=== PATIENT | female | born 1985 | race African-American/Black ===

== ENCOUNTER 2023-11-24 11:13 | Inpatient (IN) | payer OTHER ==
[2023-11-24] MEDS ORDERED: SODIUM CHLORIDE 0.9% 1000 ML INFUS.BAG IV ONE (11:57)
[2023-11-24 12:16] LABS: BASO % 0.3 % (0-2.0); EOS % 0.2 % (0-4.5); HEMATOCRIT 41.6 % (32.4-45.2); HEMOGLOBIN 13.7 GM/dL (10.7-15.3); MCH 29.5 pg (25.7-33.7); MCHC 32.9 g/dl (32.0-36.0); MEAN CELL VOLUME 89.7 fl (80-96); MEAN PLT VOLUME 7.9 fl (7.5-11.1); MONO % 4.1 % (3.8-10.2); NEUT % 90.4 % (42.8-82.8); PLATELET COUNT 355 10^3/uL (134-434); RBC 4.64 M/mm3 (3.60-5.2); RDW 13.1 % (11.6-15.6)
[2023-11-24 12:35] LABS: POTASSIUM 4.5 mmol/L (3.5-5.1)
[2023-11-24 12:38] LABS: BLOOD UREA NITROGEN 9.9 mg/dL (7-18); CALCIUM 8.6 mg/dL (8.5-10.1)
[2023-11-24 12:39] LABS: ALBUMIN 3.7 g/dl (3.4-5.0)
[2023-11-24 12:42] LABS: CREATININE 0.7 mg/dL (0.55-1.3)
[2023-11-24] MEDS ORDERED: ACETAMINOPHEN 325 MG TABLET (FP) PO ONE (12:42)
[2023-11-24] MEDS ORDERED: METOCLOPRAMIDE HCL INJECTION 10 MG/2 ML VIAL IVPUSH ONE (12:42)
[2023-11-24] MEDS ORDERED: MECLIZINE HCL 25 MG TABLET (FP) PO ONE (12:42)
[2023-11-24 12:43] LABS: BILIRUBIN,TOTAL 0.3 mg/dL (0.2-1); TOT PROT 7.8 g/dl (6.4-8.2)
[2023-11-24] MEDS ORDERED: ACETAMINOPHEN 325 MG TABLET (FP) ONE (12:47)
[2023-11-24] MEDS ORDERED: MECLIZINE HCL 25 MG TABLET (FP) ONE (12:47)
[2023-11-24] MEDS ORDERED: METOCLOPRAMIDE HCL INJECTION 10 MG/2 ML VIAL ONE (12:48)
[2023-11-24 13:08] LABS: EPI CELLS 9 /uL (0-25.1); HYALINE CASTS 0 /uL (0-3.1); URINE APPEARANCE CLEAR; URINE BACTERIA 416 /uL (0-1359); URINE BILIRUBIN NEGATIVE (NEGATIVE); URINE COLOR YELLOW; URINE GLUCOSE (UA) NEGATIVE (NEGATIVE); URINE KETONE NEGATIVE (NEGATIVE); URINE LEUK ESTERASE NEGATIVE (NEGATIVE); URINE NITRITE NEGATIVE (NEGATIVE); URINE PROTEIN 1+ (NEGATIVE); URINE RBC 7 /uL (0-23.9); URINE UROBILINOGEN 0.2 mg/dL (0.2-1.0); URINE WBC 6 /uL (0-25.8)
[2023-11-24] MEDS ORDERED: NITROGLYCERIN SUBLINGUAL 1/150 0.4 MG TAB SL ONE (17:47)
[2023-11-24] MEDS ORDERED: NITROGLYCERIN 2% OINTMENT - 1GM PACKET TD ONE ×3 (17:48→20:31)
[2023-11-24] MEDS ORDERED: NITROGLYCERIN SUBLINGUAL 1/150 0.4 MG TAB ONE ×2 (18:24→20:30)
[2023-11-24] MEDS ORDERED: LABETALOL HCL 5 MG/1 ML (100MG/20 ML VIAL) IVPUSH ONE (19:17)
[2023-11-24] MEDS ORDERED: ASPIRIN 81 MG CHEWABLE TABLETS PO ONE (19:17)
[2023-11-24] MEDS ORDERED: LOSARTAN POTASSIUM 50 MG TABLET PO ONE (19:52)
[2023-11-24] MEDS ORDERED: hydrALAZINE HCL 20 MG/ML VIAL IVPUSH PRN ×3 (20:11→21:38)
[2023-11-24] MEDS ORDERED: LOSARTAN POTASSIUM 50 MG TABLET ONE (20:30)
[2023-11-24] MEDS ORDERED: LOSARTAN POTASSIUM 25 MG TABLET ONE (20:30)
[2023-11-24] MEDS ORDERED: ASPIRIN 81 MG CHEWABLE TABLETS ONE (20:31)
[2023-11-24] MEDS ORDERED: LABETALOL HCL 5 MG/1 ML (100MG/20 ML VIAL) ONE (20:31)
[2023-11-24] MEDS ORDERED: hydrALAZINE HCL 20 MG/ML VIAL ONE (23:00)
[2023-11-25 00:23] LABS: METHADONE, UR NEGATIVE (NEGATIVE); OPIATES, URI NEGATIVE (NEGATIVE); URINE BENZODIAZEPINES NEGATIVE (NEGATIVE)
[2023-11-25 00:24] LABS: PHENCYCLIDINE,URINE NEGATIVE (NEGATIVE)
[2023-11-25 00:27] LABS: COCAINE, UR NEGATIVE (NEGATIVE); URINE AMPHETAMINES NEGATIVE (NEGATIVE); URINE BARBITURATES NEGATIVE (NEGATIVE)
[2023-11-25] MEDS ORDERED: ACETAMINOPHEN 1000 MG/100 ML BAG IVPB ONE (04:50)
[2023-11-25] MEDS ORDERED: ONDANSETRON 4 MG/2 ML VIAL IVPUSH ONE (04:51)
[2023-11-25] MEDS ORDERED: hydrALAZINE HCL 20 MG/ML VIAL IVPUSH ONE ×3 (05:07→06:14)
[2023-11-25 08:28] LABS: HEMATOCRIT 39.5 % (32.4-45.2); HEMOGLOBIN 13.1 GM/dL (10.7-15.3); MCH 29.6 pg (25.7-33.7); MCHC 33.1 g/dl (32.0-36.0); MEAN CELL VOLUME 89.4 fl (80-96); MEAN PLT VOLUME 8.5 fl (7.5-11.1); PLATELET COUNT 341 10^3/uL (134-434); RBC 4.42 M/mm3 (3.60-5.2); RDW 13.2 % (11.6-15.6)
[2023-11-25 08:38] LABS: POTASSIUM 3.4 mmol/L (3.5-5.1)
[2023-11-25 08:40] LABS: ALBUMIN 3.5 g/dl (3.4-5.0); BLOOD UREA NITROGEN 9.5 mg/dL (7-18); CALCIUM 8.7 mg/dL (8.5-10.1)
[2023-11-25 08:43] LABS: CREATININE 0.6 mg/dL (0.55-1.3)
[2023-11-25 08:45] LABS: BILIRUBIN,TOTAL 0.5 mg/dL (0.2-1)
[2023-11-25] MEDS ORDERED: LOSARTAN POTASSIUM 50 MG TABLET ONE (10:03)
[2023-11-25] MEDS ORDERED: HYDROCHLOROTHIAZIDE 25 MG TABLET (FP) ONE (10:03)
[2023-11-25] MEDS ORDERED: ENOXAPARIN NA (PORCINE) 40 MG/0.4 ML DISP.SYRIN SQ ONE (10:03)
[2023-11-25] MEDS: ENOXAPARIN NA (PORCINE) 40 MG/0.4 ML DISP.SYRIN SQ SCH (10:04)
[2023-11-25] MEDS: HYDROCHLOROTHIAZIDE 25 MG TABLET (FP) PO SCH (10:04)
[2023-11-25] MEDS: LOSARTAN POTASSIUM 50 MG TABLET PO SCH (10:04)
[2023-11-25] MEDS ORDERED: POTASSIUM CHLORIDE TABS 20 MEQ TABLET.ER (FP) PO ONE ×2 (11:16→12:00)
[2023-11-25] MEDS ORDERED: amLODIPine BESYLATE 10 MG TABLET (FP) ONE (11:17)
[2023-11-25] MEDS ORDERED: ROSUVASTATIN CA 20 MG TABLET ONE (11:17)
[2023-11-25] MEDS: amLODIPine BESYLATE 10 MG TABLET (FP) PO SCH (11:28)
[2023-11-25] MEDS ORDERED: ROSUVASTATIN CA 40 MG TABLET PO ONE (12:00)
[2023-11-25] MEDS: hydrALAZINE HCL 20 MG/ML VIAL IVPUSH PRN ×2 (18:05→23:51)
[2023-11-25] MEDS ORDERED: hydrALAZINE HCL 20 MG/ML VIAL ONE (18:06)
[2023-11-26 00:01] VITALS: BMI 33.3
[2023-11-26] MEDS: LOSARTAN POTASSIUM 50 MG TABLET PO SCH (06:34)
[2023-11-26] MEDS: HYDROCHLOROTHIAZIDE 25 MG TABLET (FP) PO SCH (06:35)
[2023-11-26] MEDS: amLODIPine BESYLATE 10 MG TABLET (FP) PO SCH (09:22)
[2023-11-26] MEDS: ENOXAPARIN NA (PORCINE) 40 MG/0.4 ML DISP.SYRIN SQ SCH (09:23)
[2023-11-26] MEDS ORDERED: ASPIRIN 325 MG TABLET PO ONE (11:30)
[2023-11-26 12:34] LABS: BASO % 0.5 % (0-2.0); EOS % 0.1 % (0-4.5); HEMATOCRIT 43.9 % (32.4-45.2); HEMOGLOBIN 14.4 GM/dL (10.7-15.3); LYMPH % 10.9 % (8-40); MCHC 32.7 g/dl (32.0-36.0); MEAN CELL VOLUME 88.6 fl (80-96); MEAN PLT VOLUME 8.3 fl (7.5-11.1); NEUT % 82.5 % (42.8-82.8); PLATELET COUNT 429 10^3/uL (134-434); RBC 4.95 M/mm3 (3.60-5.2); RDW 13.4 % (11.6-15.6); WHITE BLOOD COUNT 17.3 K/mm3 (4.0-10.0)
[2023-11-26 12:50] LABS: POTASSIUM 3.4 mmol/L (3.5-5.1)
[2023-11-26 12:52] LABS: CALCIUM 9.4 mg/dL (8.5-10.1)
[2023-11-26 12:53] LABS: ALBUMIN 3.8 g/dl (3.4-5.0); BLOOD UREA NITROGEN 9.6 mg/dL (7-18)
[2023-11-26 12:56] LABS: CREATININE 0.8 mg/dL (0.55-1.3)
[2023-11-26 12:57] LABS: BILIRUBIN,TOTAL 0.5 mg/dL (0.2-1); TOT PROT 7.9 g/dl (6.4-8.2)
[2023-11-26] MEDS ORDERED: POTASSIUM CHLORIDE ORAL LIQUID 20 MEQ/15 ML PO ONE (16:11)
[2023-11-26] MEDS ORDERED: ROSUVASTATIN CA 20 MG TABLET PO SCH (22:00)
[2023-11-27] MEDS: HYDROCHLOROTHIAZIDE 25 MG TABLET (FP) PO SCH (06:01)
[2023-11-27] MEDS: LOSARTAN POTASSIUM 50 MG TABLET PO SCH (06:02)
[2023-11-27] MEDS: ENOXAPARIN NA (PORCINE) 40 MG/0.4 ML DISP.SYRIN SQ SCH (09:20)
[2023-11-27] MEDS: amLODIPine BESYLATE 10 MG TABLET (FP) PO SCH (09:21)
[2023-11-27 09:23] VITALS: RESP 16
[2023-11-27 13:21] LABS: BASO % 0.2 % (0-2.0); EOS % 0.2 % (0-4.5); HEMATOCRIT 44.3 % (32.4-45.2); HEMOGLOBIN 14.6 GM/dL (10.7-15.3); LYMPH % 16.1 % (8-40); MCH 29.4 pg (25.7-33.7); MEAN PLT VOLUME 8.7 fl (7.5-11.1); MONO % 7.5 % (3.8-10.2); PLATELET COUNT 434 10^3/uL (134-434); RBC 4.98 M/mm3 (3.60-5.2); RDW 13.5 % (11.6-15.6); WHITE BLOOD COUNT 17.1 K/mm3 (4.0-10.0)
[2023-11-27 13:49] LABS: POTASSIUM 3.7 mmol/L (3.5-5.1)
[2023-11-27 13:51] LABS: ALBUMIN 3.9 g/dl (3.4-5.0); BLOOD UREA NITROGEN 15.7 mg/dL (7-18); CALCIUM 9.7 mg/dL (8.5-10.1)
[2023-11-27 13:54] LABS: CREATININE 0.8 mg/dL (0.55-1.3)
[2023-11-27 13:56] LABS: BILIRUBIN,TOTAL 0.4 mg/dL (0.2-1); TOT PROT 7.6 g/dl (6.4-8.2)
[2023-11-27 14:58] VITALS: BP 140/86; PULSE 70; TEMP 98.5
[2023-12-01 19:08] LABS: RENIN ACTIVITY(PRA) < 0.167 ng/mL/hr (0.167-5.380)
== END 2023-11-27 16:54 | disposition home or self-care (01) | DRG 45 ==
LOC: JER 11:13 → JERBED 17:49 → J4W 11-25 23:42 → OBSVTOIN 11-26 13:53
PROVIDERS: ADMIT Internal Medicine
DX: I63.89 Other cerebral infarction (principal); I24.89 Other forms of acute ischemic heart disease; I16.1 Hypertensive emergency; E87.6 Hypokalemia; E66.9 Obesity, unspecified; Z68.33 Body mass index [BMI] 33.0-33.9, adult; I67.4 Hypertensive encephalopathy; F12.90 Cannabis use, unspecified, uncomplicated; G43.909 Migraine, unspecified, not intractable, without status migrainosus; Z91.148 Patient's other noncompliance with medication regimen for other reason
CPT/HCPCS: 0241U-QW; 36415; 70450-TC; 70551-TC; 71045-TC-FY; 76775-TC; 80053; 80061; 80307; 81003; 82088; 82136; 83036; 83690; 83918; 84244; 84484; 84703; 85025; 85027; 86038; 87086; 93005; 93010; 93306-TC; 93975; 97116-GP; 97161-GP; 99285-25; G0378